=== PATIENT | female | born 1960 | race Caucasian/White ===

== ENCOUNTER 2025-01-01 11:00 | Emergency (ER) | payer MEDICARE ==
[~2025-01-01] VITALS: Ht 160 cm; Wt 117.9 kg
[2025-01-01] MEDS ORDERED: Acetaminophen/Oxycodone Hydr 7.5 MG/325 MG TABLET PO ONE (11:40)
[2025-01-01] MEDS ORDERED: PERCOCET 5-3251 EACH PO (13:04)
== END 2025-01-01 13:33 | disposition home or self-care (01) ==
LOC: ED 11:00
DX: M25.512 Pain in left shoulder (principal)